=== PATIENT | male | born 1995 | race Caucasian/White ===

== ENCOUNTER 2017-02-13 22:22 | Emergency (ER) | payer OTHER ==
[~2017-02-13] VITALS: Ht 188 cm; Wt 88.0 kg
[~2017-02-13 22:22] MED LIST: AUGM875T PO; IBUP800T23 PO; MEDR4PAK3 PO
[2017-02-13 22:24] VITALS: BP 143/88; PULSE 96; RESP 16; TEMP 97.8; O2SAT 99
[2017-02-14 00:56] VITALS: BP 149/69; PULSE 96; RESP 18; O2SAT 98
[2017-02-14] MEDS ORDERED: ONDANSETRON HCL 4 MG/2 ML VIAL IV PUSH ONE (01:15)
[2017-02-14] MEDS ORDERED: ZOFR4TAB3 SL (01:53)
--- NOTE | 2017-02-14 01:53 | PD ---
HPI Chief Complaint: GI Complaint Time Seen by Provider: 00:59 Travel History International Travel<30 days: No Contact w/Intl Traveler<30days: No Traveled to known affect area: No History of Present Illness HPI Patient is a 21-year-old male presents emergency department nausea vomiting and diarrhea for the past 5-6 hours. Patient states he came here to visit a friend who is critically injured and he began having nausea and nonbloody his nonbilious vomiting as well as watery diarrhea which is nonbloody and non-melena 's. Patient states that he ate not shows at [employer] several hours prior to presentation emergency department. Denies any abdominal pain denies any abdominal pain fevers dysuria. States his nausea is actually getting better now. States is never happened to him before. PFSH Past Medical History Heart Rhythm Problems: Yes (SVT) Cardiovascular Problems: Yes (SVT) Developmental Delay: No Diminished Hearing: No Immunizations Current: Yes Tetanus Vaccination: Unknown Past Surgical History Cardiac Surgery: Yes (heart sx due to SVT) Social History Alcohol Use: No (socially) Tobacco Use: No Substance Use: Yes (marijaunia occasionally) Allergies-Medications (Allergen,Severity, Reaction): Coded Allergies: No Known Allergies (Verified Adverse Reaction, Unknown, 02/14/17) Reported Meds & Prescriptions Reported Meds & Active Scripts Active Zofran Odt (Ondansetron Odt) 4 Mg Tab 4 Mg SL Q6HR PRN Review of Systems Except as stated in HPI: all other systems reviewed are Neg Physical Exam Narrative GENERAL: Well-developed well-nourished in no obvious distress SKIN: Focused skin assessment warm/dry. HEAD: Atraumatic. Normocephalic. EYES: Pupils equal and round. No scleral icterus. No injection or drainage. ENT: No nasal bleeding or discharge. Mucous membranes pink and moist. NECK: Trachea midline. No JVD. CARDIOVASCULAR: Regular rate and rhythm. No murmur appreciated. RESPIRATORY: No accessory muscle use. Clear to auscultation. Breath sounds equal bilaterally. GASTROINTESTINAL: Abdomen soft, non-tender, nondistended. Hepatic and splenic margins not palpable. No rebound no percussive tenderness. MUSCULOSKELETAL: No obvious deformities. No clubbing. No cyanosis. No edema. NEUROLOGICAL: Awake and alert. No obvious cranial nerve deficits. Motor grossly within normal limits. Normal speech. PSYCHIATRIC: Appropriate mood and affect; insight and judgment normal. Data Data Last Documented VS Vital Signs Date Time Temp Pulse Resp B/P (MAP) Pulse Ox O2 Delivery O2 Flow Rate FiO2 02/14/17 00:56 96 18 149/69 (95) 98 Room Air 02/13/17 22:24 97.8 Orders Orders Ondansetron Inj (Zofran Inj) (02/14/17 01:15) Ed Discharge Order (02/14/17 01:53) [facility] Medical Decision Making Medical Screen Exam Complete: Yes Emergency Medical Condition: Yes Differential Diagnosis Gastritis, gastroenteritis, significant dehydration likely, significant electro- light abnormality highly unlikely. Narrative Course Patient roomed emergency department, given normal saline bolus, Zofran, feeling better, vital signs stable and abdominal exam is benign. Discussed symptomatic management returned ED criteria. He stable for discharge. Diagnosis Primary Impression: Gastroenteritis Additional Instructions: Recommend avoiding contact with any persons you know who are ill or hospitalized until your symptoms have completely resolved. Med/Other Pt SpecificInfo: Prescription(s) given Scripts Ondansetron Odt (Zofran Odt) 4 Mg Tab 4 MG SL Q6HR Y for Nausea/Vomiting, #15 TAB 0 Refills Prov: Carlos Manuel Mckinnon MD 02/14/17 Disposition: 01 DISCHARGE HOME Condition: Stable Carlos Manuel Mckinnon MD Feb 14, 2017 01:53
== END 2017-02-14 02:24 | disposition home or self-care (01) ==
LOC: NEPC 22:22
DX: K52.9 Noninfective gastroenteritis and colitis, unspecified (principal)
CPT/HCPCS: 96374; 99284; J2405

== ENCOUNTER 2017-04-07 16:58 | Emergency (ER) | payer OTHER ==
[~2017-04-07] VITALS: Ht 188 cm; Wt 86.5 kg
[~2017-04-07 16:58] MED LIST changes: -AUGM875T PO; -IBUP800T23 PO; -MEDR4PAK3 PO; +ZOFR4TAB3 SL
[2017-04-07 17:09] VITALS: BP 131/67; PULSE 105; RESP 16; TEMP 100.4; O2SAT 96
[2017-04-07] MEDS ORDERED: SODIUM CHLOR 0.9% 1000 ML INJ 1,000 ML IV ONE (19:00)
[2017-04-07] MEDS ORDERED: DEXAMETHASONE SOD PHOS 20 MG/5 ML VIAL IV PUSH ONE (19:00)
[2017-04-07] MEDS ORDERED: ACETAMINOPHEN 325 MG TAB PO ONE (19:00)
--- NOTE | 2017-04-07 19:33 | PD ---
HPI Chief Complaint: Cold / Flu Symptoms Time Seen by Provider: 18:50 Travel History International Travel<30 days: No Contact w/Intl Traveler<30days: No Traveled to known affect area: No History of Present Illness HPI 21-year-old male that presents to the ED for evaluation of cold-like symptoms. Per patient she's had this on and off for the past month and a half. Per patient is not getting better. Per patient he went to an urgent care and diagnosed with bronchitis. He started on antibiotics and Medrol Dosepak with some relief and he seemed like he was getting better but then it came back. Per patient he was seen a second time and was prescribed another antibiotic but the patient doesn't seem to be helping and seems to be making his symptoms worse. Per patient he has a sore throat. No urinary or bowel movement issues. Patient states having body aches and feeling very weak and lethargic. He states that he feels very similar to when he had mononucleosis when he was in high school. He denies any recent exposure to sick contacts. He did not get a flu shot this year. He states that he has cough and runny nose. Per patient he is medically concerned because he is not getting better and his "tired of being sick". Has no allergies to medication. No other medical issues. No urinary or bowel movement issues. PFSH Past Medical History Hx Anticoagulant Therapy: No Heart Rhythm Problems: Yes (SVT) Cardiovascular Problems: Yes (SVT) Developmental Delay: No Diabetes: No Diminished Hearing: No Immunizations Current: Yes Tetanus Vaccination: Unknown Influenza Vaccination: No Past Surgical History Cardiac Surgery: Yes (Ablation for SVT) Social History Alcohol Use: No (Weekends) Tobacco Use: No Substance Use: Yes (Marijuana) Allergies-Medications (Allergen,Severity, Reaction): Coded Allergies: No Known Allergies (Verified Adverse Reaction, Unknown, 04/07/17) Reported Meds & Prescriptions Reported Meds & Active Scripts Active No Active Prescriptions or Reported Medications Review of Systems Except as stated in HPI: all other systems reviewed are Neg Physical Exam Narrative GENERAL: Well-nourished, well-developed patient in no apparent distress. SKIN: Warm and dry. HEAD: Atraumatic. Normocephalic. EYES: Pupils equal and round reactive to light and accommodation. No scleral icterus. No injection or drainage. ENT: No nasal bleeding or discharge. Mucous membranes pink and moist. TMs are clear with no sign of infection or perforation. No mastoid tenderness. Ear canals are intact bilaterally. No lymphadenopathy. Nostril mucosa is red and moist with clear mucus noted. No sinus tenderness to palpation noted. Tonsils are not enlarged or swollen. No ulvua Deviation. Tongue is midline. NECK: Trachea midline. No JVD. No meningeal signs noted CARDIOVASCULAR: Regular rate and rhythm. RESPIRATORY: No accessory muscle use. Clear to auscultation. Breath sounds equal bilaterally. GASTROINTESTINAL: Abdomen soft, non-tender, nondistended. Hepatic and splenic margins not palpable. MUSCULOSKELETAL: Extremities without clubbing, cyanosis, or edema. No obvious deformities. NEUROLOGICAL: Awake and alert. No obvious cranial nerve deficits. Motor grossly within normal limits. Five out of 5 muscle strength in the arms and legs. Normal speech. PSYCHIATRIC: Appropriate mood and affect; insight and judgment normal. Data Data Last Documented VS Vital Signs Date Time Temp Pulse Resp B/P (MAP) Pulse Ox O2 Delivery O2 Flow Rate FiO2 04/07/17 19:20 14 96 Room Air 04/07/17 17:09 100.4 105 131/67 (88) Orders Orders Acetaminophen (Tylenol) (04/07/17 19:00) Complete Blood Count With Diff (04/07/17 18:57) Basic Metabolic Panel (Bmp) (04/07/17 18:57) Magnesium (Mg) (04/07/17 18:57) Thyroid Stimulating Hormone (04/07/17 18:57) Group A Rapid Strep Screen (04/07/17 18:57) Influenzae A/B Antigen (04/07/17 18:57) Chest, Single Ap (04/07/17 18:57) Iv Access Insert/Monitor (04/07/17 18:57) Sodium Chlor 0.9% 1000 Ml Inj (Ns 1000 M (04/07/17 19:00) Monoscreen (04/07/17 18:57) Dexamethasone Inj (Decadron Inj) (04/07/17 19:00) Strep Culture (Group A) (04/07/17 19:30) Labs Laboratory Tests Test 04/07/17 19:30 White Blood Count 8.1 TH/MM3 Red Blood Count 5.55 MIL/MM3 Hemoglobin 16.7 GM/DL Hematocrit 49.0 % Mean Corpuscular Volume 88.3 FL Mean Corpuscular Hemoglobin 30.2 PG Mean Corpuscular Hemoglobin Concent 34.2 % Red Cell Distribution Width 11.8 % Platelet Count 212 TH/MM3 Mean Platelet Volume 6.9 FL Neutrophils (%) (Auto) 80.4 % Lymphocytes (%) (Auto) 7.3 % Monocytes (%) (Auto) 8.0 % Eosinophils (%) (Auto) 0.4 % Basophils (%) (Auto) 3.9 % Neutrophils # (Auto) 6.5 TH/MM3 Lymphocytes # (Auto) 0.6 TH/MM3 Monocytes # (Auto) 0.7 TH/MM3 Eosinophils # (Auto) 0.0 TH/MM3 Basophils # (Auto) 0.3 TH/MM3 CBC Comment DIFF FINAL Differential Comment Blood Urea Nitrogen 10 MG/DL Creatinine 0.84 MG/DL Random Glucose 96 MG/DL Calcium Level 9.2 MG/DL Magnesium Level 2.0 MG/DL Sodium Level 136 MEQ/L Potassium Level 3.6 MEQ/L Chloride Level 102 MEQ/L Carbon Dioxide Level 27.5 MEQ/L Anion Gap 7 MEQ/L Estimat Glomerular Filtration Rate 116 ML/MIN Thyroid Stimulating Hormone 3rd Gen 0.934 uIU/ML MDM Medical Decision Making Medical Screen Exam Complete: Yes Emergency Medical Condition: Yes Medical Record Reviewed: Yes Differential Diagnosis URI versus mono versus strep throat versus pharyngitis versus influenza versus pneumonia Narrative Course 21-year-old male that presents to the ED for evaluation of cold-like symptoms. Patient was properly examined and was found to have signs and symptoms of unclear etiology but likely appears to be viral. There is definite possibility for mono as patient has a history of this in the past and this feels similar. I do recommended labs and imaging as patient continues to have symptoms even after taking 2 different doses of antibiotics. Patient was given IV fluids and Tylenol for his fever. Case was signed out to my attending pending disposition and plan. Scripts No Active Prescriptions or Reported Meds Corwin Khan Apr 07, 2017 19:33
--- NOTE | 2017-04-07 19:34 | RADRPT ---
EXAM DATE/TIME: 04/07/2017 19:16 [facility] COMPARISON: No previous studies available for comparison. INDICATIONS : Cough. MEDICAL HISTORY : None. SURGICAL HISTORY : None. ENCOUNTER: Initial ACUITY: 1 week PAIN SCORE: 5/10 LOCATION: Bilateral chest FINDINGS: A single view of the chest demonstrates the lungs to be symmetrically aerated without evidence of mas s, infiltrate or effusion. The cardiomediastinal contours are unremarkable. Osseous structures are intact. CONCLUSION: No acute disease. Carlos Manuel Perez MD on April 07, 2017 at 19:31 Board Certified Radiologist. This report was verified electronically.
[2017-04-07 19:47] LABS: AUTOMATED NEUTROPHIL # 6.5 TH/MM3 (1.8-7.7); BASOPHIL # 0.3 TH/MM3 (0-0.2); BASOPHIL % 3.9 % (0.0-2.0); EOSINOPHIL % 0.4 % (0.0-4.0); HEMOGLOBIN 16.7 GM/DL (13.0-17.0); LYMPH % 7.3 % (9.0-44.0); LYMPHOCYTE # 0.6 TH/MM3 (1.0-4.8); MEAN CELL VOLUME 88.3 FL (80.0-100.0); MEAN CORPUSCULAR HEMOGLOBIN 30.2 PG (27.0-34.0); MEAN CORPUSCULAR HGB CONC 34.2 % (32.0-36.0); MEAN PLATELET VOLUME 6.9 FL (7.0-11.0); MONOCYTE # 0.7 TH/MM3 (0-0.9); NEUT % 80.4 % (16.0-70.0); PLATELET COUNT 212 TH/MM3 (150-450); RED BLOOD COUNT 5.55 MIL/MM3 (4.50-5.90); RED CELL DISTRIBUTION WIDTH 11.8 % (11.6-17.2); WHITE BLOOD COUNT 8.1 TH/MM3 (4.0-11.0)
[2017-04-07 19:52] LABS: CALCIUM 9.2 MG/DL (8.5-10.1)
[2017-04-07 19:53] LABS: BICARBONATE 27.5 MEQ/L (21.0-32.0)
[2017-04-07 19:56] LABS: CREATININE 0.84 MG/DL (0.60-1.30)
[2017-04-07 21:28] LABS: MONOSCREEN NEG (NEG)
[2017-04-07 21:32] VITALS: BP 115/69; PULSE 94; RESP 18; TEMP 98.8; O2SAT 98
--- NOTE | 2017-04-07 21:32 | PD ---
Physical Exam Date Seen by Provider: Apr 07, 2017 Narrative Please see NAKUL Soto's note for details of the H&P. Basically, the patient presents with a prolonged viral type illness. He was checked out to me pending his Monospot. Data Data Last Documented VS Vital Signs Date Time Temp Pulse Resp B/P (MAP) Pulse Ox O2 Delivery O2 Flow Rate FiO2 04/07/17 19:20 14 96 Room Air 04/07/17 17:09 100.4 105 131/67 (88) Orders Orders Acetaminophen (Tylenol) (04/07/17 19:00) Complete Blood Count With Diff (04/07/17 18:57) Basic Metabolic Panel (Bmp) (04/07/17 18:57) Magnesium (Mg) (04/07/17 18:57) Thyroid Stimulating Hormone (04/07/17 18:57) Group A Rapid Strep Screen (04/07/17 18:57) Influenzae A/B Antigen (04/07/17 18:57) Chest, Single Ap (04/07/17 18:57) Iv Access Insert/Monitor (04/07/17 18:57) Sodium Chlor 0.9% 1000 Ml Inj (Ns 1000 M (04/07/17 19:00) Monoscreen (04/07/17 18:57) Dexamethasone Inj (Decadron Inj) (04/07/17 19:00) Strep Culture (Group A) (04/07/17 19:30) Labs Laboratory Tests Test 04/07/17 19:30 White Blood Count 8.1 TH/MM3 Red Blood Count 5.55 MIL/MM3 Hemoglobin 16.7 GM/DL Hematocrit 49.0 % Mean Corpuscular Volume 88.3 FL Mean Corpuscular Hemoglobin 30.2 PG Mean Corpuscular Hemoglobin Concent 34.2 % Red Cell Distribution Width 11.8 % Platelet Count 212 TH/MM3 Mean Platelet Volume 6.9 FL Neutrophils (%) (Auto) 80.4 % Lymphocytes (%) (Auto) 7.3 % Monocytes (%) (Auto) 8.0 % Eosinophils (%) (Auto) 0.4 % Basophils (%) (Auto) 3.9 % Neutrophils # (Auto) 6.5 TH/MM3 Lymphocytes # (Auto) 0.6 TH/MM3 Monocytes # (Auto) 0.7 TH/MM3 Eosinophils # (Auto) 0.0 TH/MM3 Basophils # (Auto) 0.3 TH/MM3 CBC Comment DIFF FINAL Differential Comment Blood Urea Nitrogen 10 MG/DL Creatinine 0.84 MG/DL Random Glucose 96 MG/DL Calcium Level 9.2 MG/DL Magnesium Level 2.0 MG/DL Sodium Level 136 MEQ/L Potassium Level 3.6 MEQ/L Chloride Level 102 MEQ/L Carbon Dioxide Level 27.5 MEQ/L Anion Gap 7 MEQ/L Estimat Glomerular Filtration Rate 116 ML/MIN Thyroid Stimulating Hormone 3rd Gen 0.934 uIU/ML Monoscreen NEG MDM Supervised Visit with [facility]: Yes Narrative Course I, Dr. Velásquez, have reviewed the advance practice practitioner's documentation and am in agreement, met with the patient face to face, made the diagnosis, and the medical decision making was done by me. *My assessment and Findings: CBC & BMP Diagram 04/07/17 19:30 Calcium Level 9.2, Magnesium Level 2.0 Monospot is negative. Diagnosis Primary Impression: Viral syndrome Patient Instructions: General Instructions, Viral Syndrome (DC) Scripts No Active Prescriptions or Reported Meds Disposition: DISCHARGE HOME Condition: Stable Cortney Paulino MD Apr 07, 2017 21:32
== END 2017-04-07 21:40 | disposition home or self-care (01) ==
LOC: PHED 16:58 → PHEFT 21:40
DX: B34.9 Viral infection, unspecified (principal); F12.90 Cannabis use, unspecified, uncomplicated
CPT/HCPCS: 71045; 80048; 83735; 84443; 85025; 86308; 87081; 87804; 87880; 96361; 96374; 99284; J1100; J7030

== ENCOUNTER 2017-06-11 10:10 | Emergency (ER) | payer OTHER ==
[~2017-06-11] VITALS: Ht 188 cm; Wt 91.9 kg
[2017-06-11 10:24] VITALS: BP 143/79; PULSE 89; RESP 18; TEMP 99.3; O2SAT 97
--- NOTE | 2017-06-11 12:13 | PD ---
HPI Chief Complaint: Cold / Flu Symptoms Time Seen by Provider: 11:39 Travel History International Travel<30 days: No Contact w/Intl Traveler<30days: No Traveled to known affect area: No History of Present Illness HPI 21-year-old male presents to the emergency room for evaluation of sore throat for the past 4 days. Patient states onset he had associated nasal congestion and mild cough but the symptoms have improved. Sore throat is severe, worse with swallowing. He has had strep throat in the past and states it does not feel that bad. He has not taken anything for symptoms. He denies any objective fever, chills, nausea, or vomiting. No chronic medical conditions or daily medications. PFSH Past Medical History Hx Anticoagulant Therapy: No Heart Rhythm Problems: Yes (SVT) Cardiovascular Problems: Yes (SVT) Developmental Delay: No Diabetes: No Diminished Hearing: No Medical other: Yes (peritonsilar abscess) Immunizations Current: Yes Influenza Vaccination: No ?: Not Past Surgical History Cardiac Surgery: Yes (Ablation for SVT) Social History Alcohol Use: Yes () Tobacco Use: No Substance Use: Yes (Marijuana) Allergies-Medications (Allergen,Severity, Reaction): Coded Allergies: No Known Allergies (Verified Adverse Reaction, Unknown, 06/11/17) Reported Meds & Prescriptions Reported Meds & Active Scripts Active No Active Prescriptions or Reported Medications Review of Systems Except as stated in HPI: all other systems reviewed are Neg Physical Exam Narrative GENERAL: Well-nourished, well-developed male in no acute distress. Afebrile. Ambulatory. SKIN: Focused skin assessment warm/dry. HEAD: Normocephalic. EYES: No scleral icterus. No injection or drainage. ENT: Mucosa pink and moist. Significant erythema without edema or exudates. No uvular edema. No uvular, palatal, or tonsillar deviation. Airway patent. Nasal turbinates appear normal without nasal blood, purulent drainage or septal hematoma. EARS: Bilateral pinnae and external canals appear within normal limits. Bilateral tympanic membranes without erythema, dullness or perforation. NECK: Supple, trachea midline. No JVD or lymphadenopathy. CARDIOVASCULAR: Regular rate and rhythm without murmurs, gallops, or rubs. RESPIRATORY: Breath sounds equal bilaterally. No accessory muscle use. Data Data Last Documented VS Vital Signs Date Time Temp Pulse Resp B/P (MAP) Pulse Ox O2 Delivery O2 Flow Rate FiO2 06/11/17 10:24 99.3 89 18 143/79 (100) 97 Orders Orders Group A Rapid Strep Screen (06/11/17 11:42) Strep Culture (Group A) (06/11/17 11:50) Ed Discharge Order (06/11/17 12:15) MDM Medical Decision Making Medical Screen Exam Complete: Yes Emergency Medical Condition: Yes Medical Record Reviewed: Yes Differential Diagnosis Strep, viral pharyngitis, upper respiratory infection Narrative Course 21-year-old male presents to the emergency room patient of sore throat for the past 4 days. He has associated cough and congestion when it started but those have gone away. Patient is afebrile well-appearing in the emergency room. Vital signs stable. Physical exam shows moderate erythema the pharynx without edema or exudates. No abscess noted. Rapid strep is negative. Patient reassured and told this is likely viral and will go away on its own with time and [id number] medications. Told to follow-up with a primary care physician or return for worsening symptoms. He understands and agrees to plan. Diagnosis Primary Impression: Acute viral pharyngitis Referrals: Primary Care Physician Patient Instructions: General Instructions, Pharyngitis (ED) Additional Instructions: Rest and drink plenty of fluids. Take ibuprofen with food as directed, as needed for pain. Follow-up with a primary care physician. Return to the emergency room for worsening symptoms. Scripts No Active Prescriptions or Reported Meds Disposition: 01 DISCHARGE HOME Condition: Stable Dorota Blank Jun 11, 2017 12:13
== END 2017-06-11 12:23 | disposition home or self-care (01) ==
LOC: PHED 10:10 → PHEFT 12:23
DX: J02.8 Acute pharyngitis due to other specified organisms (principal); R05 Cough; R09.81 Nasal congestion; F12.90 Cannabis use, unspecified, uncomplicated; I47.1 Supraventricular tachycardia
CPT/HCPCS: 87081; 87880; 99283